=== PATIENT | female | born 1955 | race Caucasian/White ===

== ENCOUNTER 2024-12-16 13:00 | Outpatient (RCR) | payer MEDICARE, SELFPAY | END 2025-02-24 11:50 | disposition home or self-care (01) | PROVIDERS: Visit Provider Physician Assistant Medical | DX: Z47.1 Aftercare following joint replacement surgery (principal); Z96.642 Presence of left artificial hip joint; M25.552 Pain in left hip; Z51.89 Encounter for other specified aftercare | CPT/HCPCS: 97110; 97116; 97161 ==